=== PATIENT | male | born 1975 | race Caucasian/White ===

== ENCOUNTER 2018-11-24 10:14 | Emergency (ER) | payer OTHER, BC ==
[2018-11-24 10:23] VITALS: BP 144/88; PULSE 85; TEMP 98.3; BMI 39.5
[2018-11-24] MEDS ORDERED: IBUPROFEN 400 MG TABLET (FP) PO ONE (10:31)
--- NOTE | 2018-11-24 10:31 | PDOC ---
History of Present Illness - General Chief Complaint: Pain Stated Complaint: LEFT KNEE PAIN Time Seen by Provider: 11/24/18 10:31 History Source: Patient Exam Limitations: No Limitations - History of Present Illness Initial Comments: 11/24/18 10:46 43y M no pmhx presents with L knee pain. Pt turned his his left leg and his L foot staied planted on the ground and caused sudden onset of L knee pain. No falls or other injuries. no numbness/tingling/.weakness. denies hip pain/foot pain. physical exam: general: no acut edistress, well appaering msk: Normal passive ROM of L hip/knee/ankle, mild ttp to medial aspect of medial knee, +pain with active flexion of knee. neg anterior/posterior draw, + pain with external rotation of foot at knee. no clicks appreciated. no erythema or effusions or warmth suspect knee strain place placed in donovan wrap REENA tehrapy pmd/ortho fu if not improved NSAIDS Past History - Past Medical History Allergies/Adverse Reactions: Allergies Allergy/AdvReac Type Severity Reaction Status Date / Time No Known Allergies Allergy Verified 11/24/18 10:15 Home Medications: Ambulatory Orders NK [No Known Home Medication] 11/24/18 COPD: No - Immunization History Td Vaccination: No TDAP Vaccination: No Immunization Up to Date: No - Suicide/Smoking/Psychosocial Hx Smoking Status: No Smoking History: Never smoked Have you smoked in the past 12 months: No Number of Cigarettes Smoked Daily: 0 Information on smoking cessation initiated: No Hx Alcohol Use: No Drug/Substance Use Hx: No Substance Use Type: None Trauma Specific PMHX - Complaint Specific PMHX Back Injury: No Neck Injury: No *Physical Exam - Vital Signs Last Vital Signs Temp Pulse Resp BP Pulse Ox 98.3 F 85 16 144/88 100 11/24/18 10:15 11/24/18 10:15 11/24/18 10:15 11/24/18 10:15 11/24/18 10:15 *DC/Admit/Observation/Transfer Diagnosis at time of Disposition: Strain of knee and leg, left Qualifiers: Encounter type: initial encounter Qualified Code(s): S86.912A - Strain of unspecified muscle(s) and tendon(s) at lower leg level, left leg, initial encounter - Discharge Dispostion Disposition: HOME Condition at time of disposition: Improved Decision to Admit order: No - Referrals Referrals: Stan Mcneil MD [Staff Physician] - - Patient Instructions Printed Discharge Instructions: DI for Knee Pain Additional Instructions: Return to the emergency department immediately with ANY new, persistent or worsening symptoms including worsenin gpain. You MUST call and follow up with your doctor or orthopedics within 4-5 days for further evaluation of your symptoms. Results were discussed with you. Please make sure your doctor reviews the results of your emergency evaluation. Your Emergency Department visit is not complete without a follow up with your doctor. Print Language: RWANDAN - Post Discharge Activity
[2018-11-24] MEDS ORDERED: IBUPROFEN 600 MG TABLET (FP) PO ONE (10:46)
== END 2018-11-24 10:56 | disposition home or self-care (01) ==
LOC: FER 10:14
DX: S86.912A Strain of unspecified muscle(s) and tendon(s) at lower leg level, left leg, initial encounter (principal)
CPT/HCPCS: 99282-25

== ENCOUNTER 2021-11-15 07:52 | Day surgery (SDC) | payer BC, OTHER ==
[2021-11-10 11:32] VITALS: BMI 36.9
[2021-11-15] MEDS ORDERED: LIDOCAINE HCL 2% 100 MG/5 ML DISP.SYRIN ONE (10:43)
[2021-11-15] MEDS ORDERED: MIDAZOLAM HCL 2 MG/2 ML SINGLE DOSE VIAL ONE ×2 (10:44)
[2021-11-15] MEDS ORDERED: PROPOFOL 20 ML ONE ×7 (10:44→12:59)
[2021-11-15] MEDS ORDERED: ROPIVACAINE HCL/PF 100 MG/20 ML VIAL ONE (10:55)
[2021-11-15] MEDS ORDERED: PATIENT'S OWN MEDICATION (NON-FORMULARY) (Semaglutide [Ozempic] 1 MG/0.75 ML Pen.Injctr) SQ SCH (11:00)
[2021-11-15] MEDS ORDERED: ceFAZolin SODIUM 1 GM VIAL ONE (11:35)
[2021-11-15] MEDS ORDERED: DEXAMETHASONE SOD PHOSPHATE 4 MG/1 ML VIAL ONE (11:58)
[2021-11-15] MEDS ORDERED: KETOROLAC TROMETHAMINE 30 MG/1 ML VIAL ONE (13:04)
[2021-11-15] MEDS ORDERED: ONDANSETRON 4 MG/2 ML VIAL ONE ×2 (13:04→14:10)
[2021-11-15] MEDS ORDERED: oxyCODONE HCL 5 MG TABLET PO PRN ×2 (13:38)
[2021-11-15] MEDS ORDERED: ONDANSETRON 4 MG/2 ML VIAL IVPUSH PRN (13:38)
[2021-11-15] MEDS ORDERED: PROMETHAZINE HCL 25 MG/1 ML VIAL IVPUSH PRN (13:38)
[2021-11-15] MEDS ORDERED: LACTATED RINGERS SOLUTION 1,000 ML IV SCH (13:45)
[2021-11-15] MEDS ORDERED: FENTANYL CITRATE/PF 50 MCG/ML VIAL ONE (14:10)
[2021-11-15] MEDS ORDERED: oxyCODONE HCL 5 MG TABLET ONE (15:30)
[2021-11-15 17:21] VITALS: BP 136/88; PULSE 85; TEMP 97.9
== END 2021-11-15 16:12 | disposition home or self-care (01) ==
LOC: FASU 07:52
PROVIDERS: ATTEND Orthopaedic Surgery Adult Reconstructive Orthopaedic Surgery
PROC: 0LQ20ZZ Repair Left Shoulder Tendon, Open Approach (ICD-10-PCS; 2021-11-15)
PROC: 0PBB0ZZ Excision of Left Clavicle, Open Approach (ICD-10-PCS; principal; 2021-11-15 12:03)
PROC: 0MN20ZZ Release Left Shoulder Bursa and Ligament, Open Approach (ICD-10-PCS; 2021-11-15 12:03)
DX: M75.42 Impingement syndrome of left shoulder (principal); M75.122 Complete rotator cuff tear or rupture of left shoulder, not specified as traumatic
CPT/HCPCS: 82962; 88304-TC; 88311-TC; 94760